=== PATIENT | female | born 1965 | race Caucasian/White ===

== ENCOUNTER 2018-11-21 15:45 | Emergency (ER) | payer SELFPAY ==
[~2018-11-21] VITALS: Ht 162.5 cm; Wt 61.2 kg
--- NOTE | 2018-11-21 16:30 | NUR ---
[facility] [place] at this time for a mental health evaluation. Spoke with Peggy and patient information faxed.
[2018-11-21 17:02] LABS: HEMOGLOBIN 13.5 G/DL (11.5-16.0); MEAN PLATELET VOLUME 9.8 FL (7.4-10.4); RED CELL DISTRIBUTION WIDTH 12.3 % (10.0-14.5); WHITE BLOOD COUNT 6.6 10^3/uL (4.3-11.0)
[2018-11-21 17:03] LABS: AMPHETAMINE SCREEN, URINE NEGATIVE (NEGATIVE); BARBITURATE SCREEN URINE NEGATIVE (NEGATIVE); BENZODIAZEPINES SCREEN URINE NEGATIVE (NEGATIVE); CANNABINOID SCREEN, URINE POSITIVE (NEGATIVE); COCAINE SCREEN URINE NEGATIVE (NEGATIVE); METHADONE STAT NEGATIVE (NEGATIVE); METHAMPHETAMINE SCREEN URINE S NEGATIVE (NEGATIVE); OPIATE SCREEN URINE NEGATIVE (NEGATIVE); OXYCODONE STAT NEGATIVE (NEGATIVE); PROPOXYPHENE STAT NEGATIVE (NEGATIVE); TRICYCLIC ANTIDEPRESSANTS SCRE NEGATIVE (NEGATIVE)
[2018-11-21 17:04] LABS: ALKALINE PHOSPHATASE 71 U/L (40-136); BILIRUBIN,TOTAL 0.4 MG/DL (0.1-1.0); BUN/CREATININE RATIO 17; CALCIUM 9.2 MG/DL (8.5-10.1); CARBON DIOXIDE 24 MMOL/L (21-32); CHLORIDE 105 MMOL/L (98-107); CREATININE SERUM 0.89 MG/DL (0.60-1.30); GFR ESTIMATED > 60; GLUCOSE 92 MG/DL (70-105); POTASSIUM 3.7 MMOL/L (3.6-5.0); SODIUM 140 MMOL/L (135-145)
[2018-11-21 17:05] LABS: ACETAMINOPHEN 11 UG/ML (10-30); ALANINE AMINOTRANSFERASE 12 U/L (0-55); ALBUMIN 4.5 GM/DL (3.2-4.5); SALICYLATE < 0.3 MG/DL (5.0-20.0); TOTAL PROTEIN 7.1 GM/DL (6.4-8.2)
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
--- NOTE | 2018-11-21 19:31 | NUR ---
Len from [facility] [place] [facility] called and video session set up for patient at this time.
[2018-11-21 22:02] VITALS: BP 144/71
== END 2018-11-21 21:34 | disposition home or self-care (01) ==
LOC: ER FS 15:46
DX: R45.851 Suicidal ideations (principal); F43.21 Adjustment disorder with depressed mood; Z88.8 Allergy status to other drugs, medicaments and biological substances
CPT/HCPCS: 36415; 80053; 80306; 80320; 80329; 85027; 93005

== ENCOUNTER → 2018-12-29 | Outpatient (CLI) | payer SELFPAY ==
--- NOTE | 2018-12-29 15:15 | Diagnostic Imaging Report ---
PATIENT HISTORY: Left-sided chest wall pain, persistent cough, decreased breath sounds. TECHNIQUE: Two views of the chest. COMPARISON: None. FINDINGS: The lung volumes are normal. No focal consolidation is seen. No large pleural effusion or pneumothorax is seen. The cardiomediastinal silhouette is normal in size and contour. No acute osseous abnormality is seen. IMPRESSION: No acute pulmonary abnormality seen. Dictated by: Dictated on workstation # [id number]
== END ==
LOC: RAD FS 14:58
PROVIDERS: ATTEND Nurse Practitioner Family
DX: R07.89 Other chest pain (principal); R05 Cough; R09.89 Other specified symptoms and signs involving the circulatory and respiratory systems
CPT/HCPCS: 71046

== ENCOUNTER 2019-12-18 16:07 | Emergency (ER) | payer OTHER ==
[~2019-12-18] VITALS: Ht 154.9 cm; Wt 62.3 kg
[2019-12-18 16:24] VITALS: BP 131/74
[2019-12-18] MEDS ORDERED: IBUP-1780 PO (16:48)
[2019-12-18] MEDS ORDERED: HYDR-4226 PO (16:48)
[2019-12-18] MEDS ORDERED: CYCL10TA9 PO (16:48)
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
== END 2019-12-18 16:51 | disposition home or self-care (01) ==
LOC: EDUNIT# 16:07 → ER FS 16:08
DX: S39.012A Strain of muscle, fascia and tendon of lower back, initial encounter (principal); S29.012A Strain of muscle and tendon of back wall of thorax, initial encounter; F17.210 Nicotine dependence, cigarettes, uncomplicated; Z88.8 Allergy status to other drugs, medicaments and biological substances; V49.9XXA Car occupant (driver) (passenger) injured in unspecified traffic accident, initial encounter
CPT/HCPCS: 99281

== ENCOUNTER → 2020-02-01 | Outpatient (CLI) | payer OTHER ==
[~2020-02-01] MED LIST: CYCL10TA9 PO; HYDR-4226 PO; IBUP-1780 PO
--- NOTE | 2020-02-01 12:57 | Diagnostic Imaging Report ---
INDICATION: LUMBAR LOW BACK PAIN TECHNIQUE: AP, Lateral and Spot imaging of the lumbar spine CORRELATION STUDY: None FINDINGS: There is straightening of the normal lumbar lordosis. The lumbar spinal curvature and alignment are otherwise within normal limits. Vertebral body heights and disc spaces are maintained. Mild hypertrophic facet arthropathy at the L4-L5, L5-S1 level. No fracture or malalignment is seen. IMPRESSION: No radiographic evidence for acute bony abnormality of the lumbar spine. Dictated by: Dictated on workstation # [id number]
--- NOTE | 2020-02-01 12:58 | Diagnostic Imaging Report ---
INDICATION: HAND PAIN RIGHT AND LEFT TECHNIQUE: 2 views of the bilateral hands. CORRELATION STUDY: None FINDINGS: There is normal alignment and appearance of the osseous structures of the hand. The joint spaces are maintained. There is no periarticular erosion. There is no acute fracture. Soft tissues are unremarkable. IMPRESSION: 1. Unremarkable examination of bilateral hands. Dictated by: Dictated on workstation # [id number]
--- NOTE | 2020-02-01 13:00 | Diagnostic Imaging Report ---
INDICATION: MID BACK PAIN. TECHNIQUE: AP, Lateral and Swimmers imaging of the thoracic spine CORRELATION STUDY: None FINDINGS: The thoracic spinal alignment appearing unremarkable. Vertebral body heights are fairly well maintained. Mild scattered areas of disc space narrowing. Minimal endplate lipping with osteophyte formation. No fracture or malalignment is seen. The cervical thoracic junction somewhat limited in visualization. No suggestion for acute bony abnormality. IMPRESSION: No radiographic evidence for acute abnormality of the thoracic spine. Mild thoracic spondylosis. Dictated by: Dictated on workstation # [id number]
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
== END ==
LOC: RAD FS 12:11
PROVIDERS: ATTEND Nurse Practitioner Family
DX: M47.814 Spondylosis without myelopathy or radiculopathy, thoracic region (principal); M47.812 Spondylosis without myelopathy or radiculopathy, cervical region
CPT/HCPCS: 72040; 72070; 72100

== ENCOUNTER 2021-04-23 19:48 | Emergency (ER) | payer SELFPAY ==
[~2021-04-23 19:48] MED LIST changes: +CYCL10TA25 PO; -CYCL10TA9 PO
[2021-04-23 20:14] LABS: BASOPHILS % (AUTO) 1 % (0-10); EOSINOPHILS # (AUTO) 0.1 10^3/uL (0.0-0.3); EOSINOPHILS % (AUTO) 2 % (0-10); HEMATOCRIT 42 % (35-52); HEMOGLOBIN 14.1 g/dL (11.5-16.0); LYMPHOCYTES # (AUTO) 2.6 10^3/uL (1.0-4.0); LYMPHOCYTES % (AUTO) 40 % (12-44); MEAN CORPUSCULAR HEMOGLOBIN 30 pg (25-34); MEAN CORPUSCULAR HGB CONC 34 g/dL (32-36); MEAN CORPUSCULAR VOLUME 89 fL (80-99); MEAN PLATELET VOLUME 9.4 fL (9.0-12.2); MONOCYTES # (AUTO) 0.5 10^3/uL (0.0-1.0); MONOCYTES % (AUTO) 7 % (0-12); NEUTROPHILS # (AUTO) 3.3 10^3/uL (1.8-7.8); NEUTROPHILS % (AUTO) 50 % (42-75); PLATELET COUNT 214 10^3/uL (130-400); WHITE BLOOD COUNT 6.5 10^3/uL (4.3-11.0)
--- NOTE | 2021-04-23 20:16 | ED Psychosocial ---
General Stated Complaint: MENTAL HEALTH EVAL Source: patient Exam Limitations: no limitations (MARKEL DE OLIVEIRA MD) History of Present Illness Date Seen by Provider: Apr 23, 2021 Time Seen by Provider: 19:52 Initial Comments 56-year-old female with past medical history of anxiety, depression, PTSD coming in from recommendations from her mental health specialist due to suicidal thoughts. Patient says she has been getting lower and lower and depression since . She states all of her children have disowned her over the course of the past couple months and she is unable to see her grandchildren. She changed from Pristiq to Effexor about a week ago and was not doing good so changed back to Pristiq. Has had thoughts to [employer] [facility] light and seal off her house so that she would suffocate after taking sleeping medications. She also said when she was worried the house would burn down and possibly harm others that her new idea would be to put a hose into the exhaust of her car and taking sleeping pills and drive away somewhere so that it would take a while to find her. She says she is done nothing to harm herself recently. In 2007 she overdosed on what she believes was Tylenol. She said she did just purchase a lot of Tylenol PM and that would be what she would also plan on taking. She has been missing work due to the depression and is worried she is about to lose her job if she has not lost it already. She denies any physical ailments including any chest pain, abdominal pain, nausea, vomiting, diarrhea, fever, chills, weakness, numbness, rash, dysuria, or any other concerns. She says she smokes marijuana regularly with no other drug use. She last smoked prior to arrival. (MARKEL DE OLIVEIRA MD) Allergies and Home Medications Allergies Coded Allergies: prochlorperazine (Verified Allergy, Unknown, 11/21/18) Patient Home Medication List Home Medication List Reviewed: Yes (MARKEL DE OLIVEIRA MD) Cyclobenzaprine HCl (Cyclobenzaprine HCl) 10 Mg Tablet, 10 MG PO Q8H PRN for SPASMS Prescribed by: MARILOU HOWARD on 12/18/19 4177 Hydrocodone/Acetaminophen (Hydrocodone/Acetaminophen 5 MG/325 MG TAB) 1 Each Tablet, 1 TAB PO Q6H Prescribed by: MARILOU HOWARD on 12/18/198 Ibuprofen (Ibuprofen) 800 Mg Tablet, 800 MG PO Q8H PRN for PAIN Prescribed by: MARILOU HOWARD on 12/18/198 Review of Systems Constitutional: No chills, No fever EENTM: No blurred vision Respiratory: No cough Cardiovascular: No chest pain Gastrointestinal: No abdominal pain Genitourinary: no symptoms reported Musculoskeletal: no symptoms reported Skin: no symptoms reported Psychiatric/Neurological: Anxiety, Depressed (MARKEL DE OLIVEIRA MD) All Other Systems Reviewed Negative Unless Noted: Yes (MARKEL DE OLIVEIRA MD) Past Jmjyxwo-Injbnd-Shpkjb Hx Patient Social History Tobacco Use?: Yes Tobacco type used: Cigarettes Substance use?: Yes Substance type: Marijuana Alcohol Use?: No (MARKEL DE OLIVEIRA MD) Seasonal Allergies Seasonal Allergies: No (MARKEL DE OLIVEIRA MD) Past Medical History Surgeries: Yes (cat scratch fever surgery, kidney surgery) Respiratory: Yes Pneumonia Cardiac: No Neurological: No Genitourinary: No Gastrointestinal: No Musculoskeletal: No Endocrine: No HEENT: No Cancer: No Psychosocial: Yes Sleep Difficulties, Anxiety, Depression Integumentary: No Blood Disorders: No (MARKEL DE OLIVEIRA MD) Physical Exam Vital Signs - First Documented 04/23/21 19:52 Temp 36.6 Pulse 87 Resp 18 B/P (MAP) 120/87 (98) Pulse Ox 99 O2 Delivery Room Air ([facility]) Capillary Refill : (MARKEL DE OLIVEIRA MD) Height, Weight, BMI Height: '" Weight: lbs. oz. kg; 25.00 BMI Method: General Appearance: WD/WN, no apparent distress HEENT: PERRL/EOMI, normal ENT inspection, pharynx normal Neck: non-tender, full range of motion, supple, normal inspection Respiratory: chest non-tender, lungs clear, normal breath sounds, no respiratory distress, no accessory muscle use Cardiovascular: regular rate, rhythm, no edema, no murmur Gastrointestinal: normal bowel sounds, non tender, soft; No distended, No guarding, No rebound Extremities: normal range of motion, non-tender, normal inspection, no pedal edema, no calf tenderness, normal capillary refill Neurologic/Psychiatric: no motor/sensory deficits, alert, normal mood/affect, oriented x 3 Appearance/Memory: disheveled Behavior/Eye Contact: cooperative, compulsive, other (Flat speech) Thoughts/Hallucinations: no apparent hallucination; No delusions Skin: normal color, warm/dry Lymphatic: no adenopathy (MARKEL DE OLIVEIRA MD) Progress/Results/Core Measures Results/Orders Lab Results Laboratory Tests Test 04/23/21 20:10 04/23/21 20:20 04/23/21 21:02 Range/Units White Blood Count 6.5 4.3-11.0 10^3/uL Red Blood Count 4.69 3.80-5.11 10^6/uL Hemoglobin 14.1 11.5-16.0 g/dL Hematocrit 42 35-52 % Mean Corpuscular Volume 89 80-99 fL Mean Corpuscular Hemoglobin 30 25-34 pg Mean Corpuscular Hemoglobin Concent 34 32-36 g/dL Red Cell Distribution Width 12.7 10.0-14.5 % Platelet Count 214 130-400 10^3/uL Mean Platelet Volume 9.4 9.0-12.2 fL Immature Granulocyte % (Auto) 0 % Neutrophils (%) (Auto) 50 42-75 % Lymphocytes (%) (Auto) 40 12-44 % Monocytes (%) (Auto) 7 0-12 % Eosinophils (%) (Auto) 2 0-10 % Basophils (%) (Auto) 1 0-10 % Neutrophils # (Auto) 3.3 1.8-7.8 10^3/uL Lymphocytes # (Auto) 2.6 1.0-4.0 10^3/uL Monocytes # (Auto) 0.5 0.0-1.0 10^3/uL Eosinophils # (Auto) 0.1 0.0-0.3 10^3/uL Basophils # (Auto) 0.0 0.0-0.1 10^3/uL Immature Granulocyte # (Auto) 0.0 0.0-0.1 10^3/uL Sodium Level 139 135-145 MMOL/L Potassium Level 3.9 3.6-5.0 MMOL/L Chloride Level 105 98-107 MMOL/L Carbon Dioxide Level 22 21-32 MMOL/L Anion Gap 12 5-14 MMOL/L Blood Urea Nitrogen 11 7-18 MG/DL Creatinine 0.80 0.60-1.30 MG/DL Estimat Glomerular Filtration Rate 87 BUN/Creatinine Ratio 14 Glucose Level 99 70-105 MG/DL Calcium Level 9.0 8.5-10.1 MG/DL Corrected Calcium 8.7 8.5-10.1 MG/DL Total Bilirubin 0.3 0.1-1.0 MG/DL Aspartate Amino Transf (AST/SGOT) 27 5-34 U/L Alanine Aminotransferase (ALT/SGPT) 20 0-55 U/L Alkaline Phosphatase 91 40-136 U/L Total Protein 7.3 6.4-8.2 GM/DL Albumin 4.4 3.2-4.5 GM/DL Salicylates Level 1.4 L 5.0-20.0 MG/DL Acetaminophen Level < 10 L 10-30 UG/ML Serum Alcohol < 10 <10 MG/DL SARS-CoV-2 RNA (RT-PCR) Not Detected Not Detecte Urine Color YELLOW Urine Clarity CLEAR Urine pH 6.0 5-9 Urine Specific [place] 1.015 L 1.016-1.022 Urine Protein NEGATIVE NEGATIVE Urine Glucose (UA) NEGATIVE NEGATIVE Urine Ketones NEGATIVE NEGATIVE Urine Nitrite NEGATIVE NEGATIVE Urine Bilirubin NEGATIVE NEGATIVE Urine Urobilinogen 0.2 < = 1.0 MG/DL Urine Leukocyte Esterase NEGATIVE NEGATIVE Urine RBC (Auto) NEGATIVE NEGATIVE Urine RBC NONE /HPF Urine WBC NONE /HPF Urine Squamous Epithelial Cells 0-2 /HPF Urine Crystals NONE /LPF Urine Bacteria NEGATIVE /HPF Urine Casts NONE /LPF Urine Mucus NEGATIVE /LPF Urine Culture Indicated NO Urine Opiates Screen NEGATIVE NEGATIVE Urine Oxycodone Screen NEGATIVE NEGATIVE Urine Methadone Screen NEGATIVE NEGATIVE Urine Propoxyphene Screen NEGATIVE NEGATIVE Urine Barbiturates Screen NEGATIVE NEGATIVE Ur Tricyclic Antidepressants Screen NEGATIVE NEGATIVE Urine Phencyclidine Screen NEGATIVE NEGATIVE Urine Amphetamines Screen NEGATIVE NEGATIVE Urine Methamphetamines Screen NEGATIVE NEGATIVE Urine Benzodiazepines Screen NEGATIVE NEGATIVE Urine Cocaine Screen NEGATIVE NEGATIVE Urine Cannabinoids Screen POSITIVE H NEGATIVE (JASMINE CERNA DO) Medications Given in ED Current Medications Medications Dose Ordered Sig/Mike Route Start Time Stop Time Status Last Admin Dose Admin Nicotine 21 mg ONCE ONCE TD 04/24/21 04:00 04/24/21 04:02 DC 04/24/21 04:04 21 MG (JASMINE CERNA DO) Progress Progress Note : Progress Note 56-year-old female with above history coming in due to suicidal thoughts with multiple different plans that she has been entertaining. ABCs were intact and vitals were stable on presentation. Physical exam reassuring with no focal abnormalities. Typical psychiatric screening labs have been ordered as well an EKG. UDS was positive for marijuana which was expected. Other labs essentially unremarkable. From my perspective she is cleared for psychiatric evaluation. Update at 6 AM on April 24. The patient has been screened and they are recommending inpatient stay on a voluntary basis. Given she is not funded by insurance, they said it could be quite a while before they find placement. (MARKEL DE OLIVEIRA MD) Initial ECG Impression Date: Apr 23, 2021 Initial ECG Impression Time: 20:12 Initial ECG Rate: 75 Initial ECG Rhythm: Normal Sinus Comment Narrow QRS, normal axis, no significant ST changes or T wave abnormalities (MARKEL DE OLIVEIRA MD) Departure Communication (Admissions) Patient reassessed and states she is no longer suicidal. Patient remains medically stable and rescreened by counts include [facility] beds at the [facility]. Recommendations are for home discharge with psychiatry and outpatient therapy follow-up and home safety plan. Patient agrees to discharge instructions and recommendations. Return precautions reviewed. Patient verbalizes understanding agreement with discharge instructions prior to departure (JASMINE CERNA DO) Impression Primary Impression: Mood disorder Disposition: 01 HOME, SELF-CARE Condition: Stable Departure-Patient Inst. Referrals: [facility] (PCP) Primary Care Physician DAPHNIE FRAZIER APRN (Family) Primary Care Physician Patient Instructions: Depression, Adult (DC), Suicide Prevention Add. Discharge Instructions: Please follow up with your therapist and psychiatric appointment and follow home safety plan. Return to the ED if new or concerning symptoms. MARKEL DE OLIVEIRA MD Apr 23, 2021 20:16 JASMINE CERNA DO Apr 24, 2021 12:54
[2021-04-23 20:38] LABS: ALANINE AMINOTRANSFERASE 20 U/L (0-55); ALBUMIN 4.4 GM/DL (3.2-4.5); ALKALINE PHOSPHATASE 91 U/L (40-136); BILIRUBIN,TOTAL 0.3 MG/DL (0.1-1.0); BUN/CREATININE RATIO 14; CARBON DIOXIDE 22 MMOL/L (21-32); CHLORIDE 105 MMOL/L (98-107); GFR ESTIMATED 87; GLUCOSE 99 MG/DL (70-105); POTASSIUM 3.9 MMOL/L (3.6-5.0); SODIUM 139 MMOL/L (135-145); TOTAL PROTEIN 7.3 GM/DL (6.4-8.2)
[2021-04-23 20:39] LABS: ACETAMINOPHEN < 10 UG/ML (10-30); SALICYLATE 1.4 MG/DL (5.0-20.0)
[2021-04-23 21:06] LABS: BILIRUBIN,URINE NEGATIVE (NEGATIVE); CLARITY,URINE CLEAR; COLOR,URINE YELLOW; GLUCOSE, URINE (UA) NEGATIVE (NEGATIVE); KETONES,URINE NEGATIVE (NEGATIVE); LEUKOCYTE ESTERASE ,URINE NEGATIVE (NEGATIVE); NITRITE,URINE NEGATIVE (NEGATIVE); PROTEIN,URINE NEGATIVE (NEGATIVE)
[2021-04-23 21:12] LABS: BACTERIA,URINE NEGATIVE /HPF; SQUAMOUS EPITHELIAL CELL,UR 0-2 /HPF
[2021-04-23 21:18] LABS: AMPHETAMINE SCREEN, URINE NEGATIVE (NEGATIVE); BARBITURATE SCREEN URINE NEGATIVE (NEGATIVE); BENZODIAZEPINES SCREEN URINE NEGATIVE (NEGATIVE); CANNABINOID SCREEN, URINE POSITIVE (NEGATIVE); COCAINE SCREEN URINE NEGATIVE (NEGATIVE); METHADONE STAT NEGATIVE (NEGATIVE); METHAMPHETAMINE SCREEN URINE S NEGATIVE (NEGATIVE); OPIATE SCREEN URINE NEGATIVE (NEGATIVE); OXYCODONE STAT NEGATIVE (NEGATIVE); PROPOXYPHENE STAT NEGATIVE (NEGATIVE); TRICYCLIC ANTIDEPRESSANTS SCRE NEGATIVE (NEGATIVE)
[2021-04-24] MEDS ORDERED: NICOTINE 21 MG (NICODERM) PATCH TD ONE (04:00)
[2021-04-24 13:00] VITALS: BP 118/76
== END 2021-04-24 13:00 | disposition home or self-care (01) ==
LOC: EDUNIT# 19:48 → ER FS 19:49
DX: F39 Unspecified mood [affective] disorder (principal); F32.9 Major depressive disorder, single episode, unspecified; Z72.0 Tobacco use; Z20.822 Contact with and (suspected) exposure to COVID-19
CPT/HCPCS: 36415; 80053; 80306; 81000; 85025; 87636; 93005; 93041; 99284; G0480 ×3; 80320; 80329